=== PATIENT | male | born 1995 | race African-American/Black ===

== ENCOUNTER 2018-07-19 08:28 | Emergency (ER) | payer SELFPAY ==
[2018-07-19] MEDS ORDERED: Ibuprofen 200 MG TAB ONE (08:51)
--- NOTE | 2018-07-19 09:43 | RAD ---
LEFT HUMERUS 2 VIEWS: Date: 07/19/18 HISTORY: Left arm pain. FINDINGS/IMPRESSION: The left humerus is intact. POS: LUCASH
== END 2018-07-19 09:25 | disposition home or self-care (01) ==
LOC: ERS 08:28
DX: S40.022A Contusion of left upper arm, initial encounter (principal); W21.05XA Struck by basketball, initial encounter; Y93.67 Activity, basketball

== ENCOUNTER 2019-01-05 14:48 | Emergency (ER) | payer SELFPAY | END 2019-01-05 15:13 | disposition home or self-care (01) | LOC: ERS 14:48 | DX: S93.402A Sprain of unspecified ligament of left ankle, initial encounter (principal); X50.1XXA Overexertion from prolonged static or awkward postures, initial encounter; Y93.67 Activity, basketball; Y99.8 Other external cause status | CPT/HCPCS: 99283 ==

== ENCOUNTER 2020-08-30 04:22 | Emergency (ER) | payer SELFPAY ==
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
== END 2020-08-30 06:15 | disposition home or self-care (01) ==
LOC: ERS 04:22
DX: S00.03XA Contusion of scalp, initial encounter (principal); V48.6XXA Car passenger injured in noncollision transport accident in traffic accident, initial encounter
CPT/HCPCS: 70450